=== PATIENT | male | born 1965 | race Caucasian/White ===

== ENCOUNTER 2017-11-05 17:14 | Observation (INO) | payer BC, OTHER ==
[2017-11-05] MEDS ORDERED: LABETALOL HCL 5 MG/ML VIAL IV ONE (17:34)
[2017-11-05] MEDS ORDERED: ASPIRIN 81 MG TAB.CHEW PO ONE (17:37)
[2017-11-05] MEDS ORDERED: ASPIRIN 81 MG TAB.CHEW ONE (17:39)
[2017-11-05 17:41] LABS: Hematocrit 42.5 % (42.0-52.0); Hemoglobin 14.8 gm/dL (13.5-18.0); Mean Cell Volume 84.5 fl (78-100); Mean Corpuscular Hemoglobin 29.4 pg (27-31); Mean Corpuscular Hgb Conc 34.8 g/dl (32-36); Mean Platelet Volume 9.6 fl (8-11.3); Neutrophil # 4.8 K/mm3 (1.3-6.0); Neutrophil % 54.8 % (42-75.0); Platelet Count 341 K/mm3 (150-450); Red Blood Count 5.03 M/mm3 (4.7-6.0); Red Cell Distribution Width 12.3 % (11.5-14.0); White Blood Count 8.7 K/mm3 (4.0-10.5)
[2017-11-05 18:14] LABS: ALT 34 U/L (19-67); AST 18 U/L (0-48); Albumin * 4.3 gm/dl (3.4-5.0); Alkaline Phosphatase * 56 U/L (50-170); Anion Gap 10.5 mmol/L (6.8-13.8); BUN/Creatinine Ratio 15.3 (9.0-21.6); Bilirubin, Total 1.3 mg/dL (0.0-1.1); Blood Urea Nitrogen 15 mg/dL (6-23); Ca. Corrected For Albumin 8.7 mg/dL (8.4-10.2); Calcium * 9.3 mg/dL (7.9-10.9); Carbon Dioxide 31.3 mmol/L (24-32.6); Chloride 100 mmol/L (97-106); Glucose * 95 mg/dL (70-110); Potassium 3.8 mmol/L (3.4-4.6); Sodium 138 mmol/L (132-142); Total Protein 7.8 gm/dL (6.2-8.2)
[2017-11-05 18:18] LABS: Troponin I Less than 0.017 ng/mL (0.00-0.10)
--- NOTE | 2017-11-05 18:26 | ERNOTE ---
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 patient states that pain increases when he moves or stand. patient states he has on episode of chest pain last night. Timing: intermittent Severity/Quality: mild, pressure Location: substernal, epigastric Chest Pain Radiation: no radiation Activities at Onset: none Modifying Factors - Improves: Present: rest Nitro Today/Relief: no nitro taken today Aspirin Treatment Today: 325 mg x 1, provided by ED Associated Symptoms: Present: shortness of breath, nausea Prior Chest Pain/Cardiac Workup: Reports: no prior cardiac workup Review of Systems - Review of Systems Constitutional: Present: See HPI EYE: Present: no symptoms reported ENT: Present: no symptoms reported Respiratory: Present: See HPI Cardiology: Present: See HPI Gastrointestinal/Abdominal: Present: no symptoms reported Genitourinary: Present: no symptoms reported Musculoskeletal: Present: no symptoms reported Skin: Present: no symptoms reported Neurological: Present: no symptoms reported Endocrine: Present: no symptoms reported Hematologic/Lymphatic: Present: no symptoms reported Psych: Present: no symptoms reported All Other Systems: All systems neg except as marked Medical History (Last Reviewed 11/05/17 @ 20:02 by Anupama Katz RN) Hypertension Hernia Hyperlipidemia hx of L collar bone fracture Surgical History: Surgical History (Last Reviewed 11/05/17 @ 20:02 by Anupama Katz RN) H/O vasectomy Hx of hernia repair hx of R ankle repair. Family History: Family History (Last Updated 11/05/17 @ 20:01 by Anupama Katz RN) Father No pertinent family history Melanoma Social History: Preferred Language [place] Do you have any advent or No cultural preference? Psych History No pertinent hx Alcohol Use occasionally Drug Use none Physical Exam - Physical Exam General Appearance: Present: wd/wn, alert, no apparent distress Head Exam: Present: normal inspection, no evidence of injury Eye Exam: Normal inspection: bilateral Ears, Nose, Throat: Present: normal ENT inspection, normal pharynx Neck: Present: normal inspection, nontender Respiratory: Present: no respiratory distress, normal breath sounds, no accessory muscle use, chest nontender, lungs clear Cardiovascular/Chest: Present: regular rate, rhythm, no murmur, normal peripheral pulses Gastrointestinal/Abdominal: Present: normal bowel sounds, nontender, nondistended, soft, no organomegaly Back Exam: Present: normal inspection, normal range of motion, no CVA tenderness , no vertebral tenderness Extremity Exam: Present: normal inspection, non-tender, normal range of motion, no edema Neurological Exam: Present: alert, oriented, normal mood/affect, no motor/ sensory deficits Skin Exam: Present: normal color, warm/dry Lymphatic Exam: Present: no adenopathy ED Progress - Results and Orders Patient's Lab Results:: I have reviewed the patient's lab results. - Vital Signs Patient's Vital Signs:: I have reviewed the patient's vital signs. Vital Signs: Vital Signs 11/05/17 17:25 11/05/17 17:37 Temperature 37.3 C Pulse Rate 79 72 Respiratory Rate 10 L Blood Pressure 218/117 H 230/128 H O2 Sat by Pulse Oximetry 98 - EKG EKG: NSR - X-Ray X-Ray #1 X-Ray: chest Interpretation: Reviewed by me X-ray Comments: Exam Date: 11/05/2017 17:55 Ordering Physician: Rick Arana History: Shortness of breath starting today. Technique: Portable AP view of the chest is compared to prior dated June 17, 2014. Findings: Diffuse hyperinflation of the lungs bilaterally with flattening of the hemidiaphragm. The lungs are clear bilaterally. There is no consolidation , pleural effusion or pneumothorax. Cardiac silhouette and pulmonary vasculature are normal. The osseous structures demonstrate degenerative changes of the spine and shoulders. IMPRESSION: NO ACUTE CARDIOPULMONARY ABNORMALITY IDENTIFIED. Electronically signed by Prabhjot Herrmann D.O.. Prabhjot Herrmann DO Dict: 11/05/17 180 - Progress/Reassessment Chief Complaint: Chest Pain Progress:: Improved Plan - Plan Plan: Patient's presenting blood pressure was 233/123. patient is pain free after 10mg labatolol dose given. BP 160's/80's. states he feels better. Spoke with Lan, agree to admit for cp r/o r/t hypertension. Departure Clinical Impression: Hypertension Qualifiers: Hypertension type: unspecified Qualified Code(s): I10 - Essential (primary) hypertension - Departure Disposition: Still a patient Condition: Stable
--- NOTE | 2017-11-06 06:49 | HP ---
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 Pain was heavy and tight, located at substernum without radiation. He reports shortness of breath. No cough, fever, chills, nausea, or vomiting. Chest pain continued so he presented to the [facility] ER. Initial evaluation in the ER was negative for acute STEMI with negative troponin, no significant EKG change, and normal chest xray. Chest pain resolved in the ER and is not currently present. He denies any changes in his routine. Medical History (Last Reviewed 11/05/17 @ 20:02 by Anupama Katz RN) Hernia Hyperlipidemia Hypertension hx of L collar bone fracture Surgical History: Surgical History (Last Reviewed 11/05/17 @ 20:02 by Anupama Katz RN) H/O vasectomy Hx of hernia repair hx of R ankle repair. 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 Smoking Status Former smoker Have you smoked in the past 12 No months Do you dip or chew tobacco No Psych History No pertinent hx Alcohol Use occasionally Drug Use none Review Of Systems (GEN) - Review of Systems Generalized/Overall Review: Present: Weakness, Diaphoresis, Fatigue. Absent: Chills, Fever EENTM: Present: No Symptoms Reported Respiratory: Present: Shortness of Breath. Absent: Cough Cardiac: Present: Chest Pain. Absent: Edema, Palpitations, Syncope Abdominal: Absent: Nausea, Vomiting Genitourinary: Present: No Symptoms Reported Neurological: Present: No Symptoms Reported Skin: Present: No Symptoms Reported Immunizations: IMMUNIZATION HX Immunizations Up to Date Yes History of Influenza Vaccine No Hx Pneumococcal Vaccination No Allergies/Adverse Reactions: Allergies Allergy/AdvReac Type Severity Reaction Status Date / Time amoxicillin [Amoxicillin] Allergy Verified 11/05/17 17:28 Home Medications: HOME MEDICATIONS Metoprolol Succinate 50 mg PO DAILY #30 tab.er.24h 11/06/17 [Last Taken Unknown] Exam - Exam Vital Signs: Vital Signs - Last Taken Temp 36.5 C 11/06/17 01:21 Pulse 66 11/06/17 02:04 Resp 16 11/06/17 01:21 BP 138/79 11/06/17 01:21 Pulse Ox 97 11/06/17 01:21 Constitutional: Present: Alert, Oriented x3, Cooperative ENT Exam: Present: normal ENT inspection, hearing grossly normal Eye Exam: bilateral eye: normal inspection Respiratory: Present: lungs clear, normal breath sounds Cardiovascular/Chest: Present: regular rate, rhythm, no murmur Abdomen: Present: Normal bowel sounds, soft, nontender, nondistended Extremity: Present: normal inspection Skin Exam: Present: normal color, warm/dry, no cyanosis Lymphatic: Present: no adenopathy Appearance: Present: appropriate appearance, appropriate insight Eye contact: Present: cooperative, good eye contact, normal speech Thoughts: Present: normal thought pattern, no apparent hallucination Diagnostic Studies: Abnormal Lab Results 11/05/17 11/05/17 Range/Units 17:38 17:38 Immature Gran % (Auto) 0.50 H (0.001-0.429) % Immature Gran # (Auto) 0.04 H (0.000-0.0310) K/mm3 Total Bilirubin 1.3 H (0.0-1.1) mg/dL Laboratory Results WBC 8.7 K/mm3 (4.0-10.5) 11/05/17 17:38 RBC 5.03 M/mm3 (4.7-6.0) 11/05/17 17:38 Hgb 14.8 gm/dL (13.5-18.0) 11/05/17 17:38 Hct 42.5 % (42.0-52.0) 11/05/17 17:38 MCV 84.5 fl (78-100) 11/05/17 17:38 MCH 29.4 pg (27-31) 11/05/17 17:38 MCHC 34.8 g/dl (32-36) 11/05/17 17:38 RDW 12.3 % (11.5-14.0) 11/05/17 17:38 Plt Count 341 K/mm3 (150-450) 11/05/17 17:38 MPV 9.6 fl (8-11.3) 11/05/17 17:38 Immature Gran % (Auto) 0.50 % (0.001-0.429) H 11/05/17 17:38 Immature Gran # (Auto) 0.04 K/mm3 (0.000-0.0310) H 11/05/17 17:38 Neutrophils % 54.8 % (42-75.0) 11/05/17 17:38 Lymphocytes % 37.0 % (20-51) 11/05/17 17:38 Monocytes % 5.1 % (0.0-9) 11/05/17 17:38 Eosinophils % 2.0 % (0.0-3.0) 11/05/17 17:38 Basophils % 0.6 % (0.0-1.0) 11/05/17 17:38 Nucleated RBC % 0.0 k/mm3 (0-1) 11/05/17 17:38 Neutrophils # 4.8 K/mm3 (1.3-6.0) 11/05/17 17:38 Lymphocytes # 3.20 k/mm3 (1.5-3.5) 11/05/17 17:38 Monocytes # 0.4 k/mm3 (0.0-1.0) 11/05/17 17:38 Eosinophils # 0.2 k/mm3 (0.0-0.7) 11/05/17 17:38 Absolute Basophils 0.1 k/mm3 (0.0-0.1) 11/05/17 17:38 D-Dimer 0.23 ug/mL (0.19-0.49) 11/05/17 17:38 Sodium 138 mmol/L (132-142) 11/05/17 17:38 Plasma Sodium 138 mmol/L (130-142) 11/05/17 17:38 Potassium 3.8 mmol/L (3.4-4.6) 11/05/17 17:38 Chloride 100 mmol/L (97-106) 11/05/17 17:38 Carbon Dioxide 31.3 mmol/L (24-32.6) 11/05/17 17:38 Anion Gap 10.5 mmol/L (6.8-13.8) 11/05/17 17:38 BUN 15 mg/dL (6-23) 11/05/17 17:38 Creatinine 0.98 mg/dL (0.4-1.4) 11/05/17 17:38 Est GFR (Non-Af Amer) 85 mL/min (60-130) 11/05/17 17:38 BUN/Creatinine Ratio 15.3 (9.0-21.6) 11/05/17 17:38 Random Glucose 95 mg/dL (70-110) 11/05/17 17:38 Calcium 9.3 mg/dL (7.9-10.9) 11/05/17 17:38 Calcium Adj for Albumin 8.7 mg/dL (8.4-10.2) 11/05/17 17:38 Total Bilirubin 1.3 mg/dL (0.0-1.1) H 11/05/17 17:38 AST 18 U/L (0-48) 11/05/17 17:38 ALT 34 U/L (19-67) 11/05/17 17:38 Alkaline Phosphatase 56 U/L (50-170) 11/05/17 17:38 Troponin I Less than 0.017 ng/mL (0.00-0.10) 11/05/17 23:38 Total Protein 7.8 gm/dL (6.2-8.2) 11/05/17 17:38 Albumin 4.3 gm/dl (3.4-5.0) 11/05/17 17:38 Assessment/Plan - Assessment/Plan (1) Chest pain Assessment: Chanelle is a 52 yo male with chest pain. Unknown etiology. Initial evaluation in the ER is negative for acute problems. Will admit to observation on telemetry with repeat troponin. If negative for WA will plan to discharge to home. Problem: Acute Qualifiers: Chest pain type: unspecified Qualified Code(s): R07.9 - Chest pain, unspecified
--- NOTE | 2017-11-06 07:16 | DS ---
(1) Chest pain Problem: Acute Description of Stay: Kwesi is a 52 yo male that presented to the ER with chest pain. Initial evaluation was negative for acute GA with no EKG changes and negative troponin. Chest Xray was negative for acute abnormality. Blood pressure was significantly elevated with systolic >200. He was given Labetolol which helped bring his blood pressure to normal over time. He was admitted for chest pain and monitored on telemetry with serial troponins and repeat EKG. There was no eviden ce of electrical change and troponin remained undetectable. He does report history of high blood pressure, but is not currently taking medication. He reports side effects to Losartan, a ACEI, and amlodipine. He has never been on metoprolol. Due to his great response to labetalol, will plan to continue him on metoprolol 50mg daily. Will scheduled an outpatient stress test and have him follow up in clinic. Procedures Performed: none Results and Findings: Lab Pending Results 11/05/17 17:38: WBC 8.7, RBC 5.03, Hgb 14.8, Hct 42.5, MCV 84.5, MCH 29.4, MCHC 34.8, RDW 12.3, Plt Count 341, MPV 9.6, Immature Gran % (Auto) 0.50 H, Immature Gran # (Auto) 0.04 H, Neutrophils % 54.8, Lymphocytes % 37.0, Monocytes % 5.1, Eosinophils % 2.0, Basophils % 0.6, Nucleated RBC % 0.0, Neutrophils # 4.8, Lymphocytes # 3.20, Monocytes # 0.4, Eosinophils # 0.2, Absolute Basophils 0.1 11/05/17 17:38: Sodium 138, Plasma Sodium 138, Potassium 3.8, Chloride 100, Carbon Dioxide 31.3, Anion Gap 10.5, BUN 15, Creatinine 0.98, Est GFR (Non-Af Amer) 85, BUN/Creatinine Ratio 15.3, Random Glucose 95, Calcium 9.3, Calcium Adj for Albumin 8.7, Total Bilirubin 1.3 H, AST 18, ALT 34, Alkaline Phosphatase 56, Troponin I Less than 0.017, Total Protein 7.8, Albumin 4.3 11/05/17 17:38: D-Dimer 0.23 11/05/17 23:38: Troponin I Less than 0.017 Discharge Location: Home Disposition: Home self-care Condition: Good Discharge Activity: Activity as tolerated Discharge Diet: Low salt Referrals: Marcos Montenegro DO [Staff Physician] - Problem Oriented Discharge Instructions to Patient/Family: Chest Pain Observation Prescriptions (Any new or edited meds): Metoprolol Succinate 50 mg PO DAILY #30 tab.er.24h Complete Home Medications List: Complete Home Medication List: Metoprolol Succinate 50 mg PO DAILY #30 tab.er.24h 11/06/17 Amb Orders for Discharge: NUC Treadmill Stress Test Time Frame: 1 Week, Location: Radiology
[2017-11-06 08:43] VITALS: BP 153/82
== END 2017-11-06 09:00 | disposition home or self-care (01) ==
LOC: ER 17:14 → MS 17:14
PROVIDERS: ADMIT Family Medicine; ATTEND Family Medicine
CPT/HCPCS: 36415; 71010; 71045; 80053; 84484; 85025; 85379; 93005; 96374; 99284; G0378